=== PATIENT | female | born 1995 | race Caucasian/White ===

== ENCOUNTER 2018-02-08 18:42 | Emergency (ER) | payer OTHER ==
[2018-02-08] MEDS: TRIMETHOPRIM/SULFAMETHOX (DS) TAB PO (19:16)
[2018-02-08] MEDS: IBUPROFEN 600 MG TAB PO (19:16)
== END 2018-02-08 19:23 | disposition home or self-care (01) ==
LOC: FTE 18:42
DX: L03.114 Cellulitis of left upper limb (principal)
CPT/HCPCS: 99283

== ENCOUNTER 2018-02-13 13:08 | Emergency (ER) | payer OTHER ==
[2018-02-13] MEDS: LIDOCAINE 1%/EPI (1:100,000) (MDV) 20 ML INJ (13:42)
[2018-02-13] MEDS: LIDOCAINE 1%/EPI (MDV) 50 ML INJ INJ (13:42)
== END 2018-02-13 14:10 | disposition home or self-care (01) ==
LOC: FTE 13:08
DX: L02.414 Cutaneous abscess of left upper limb (principal)
CPT/HCPCS: 10060; 99283-25

== ENCOUNTER 2018-02-16 11:14 | Emergency (ER) | payer OTHER | END 2018-02-16 12:24 | disposition home or self-care (01) | LOC: FTE 11:14 | DX: Z48.01 Encounter for change or removal of surgical wound dressing (principal) | CPT/HCPCS: 99281 ==